=== PATIENT | male | born 1950 | race Caucasian/White ===

== ENCOUNTER → 2017-06-29 | Outpatient (CLI) | payer MEDICARE ==
[~2017-06-29] MED LIST: ALLO300 PO; ASCO500 PO; Coumadin4 MG PO; ENOX100I; MECL25 PO; METO50 PO; MULT50FEL PO; POTCHL10ER PO; ROSU5 PO; SIMV40 PO; TAMS.4ER PO; WARF1 PO; WARF5 PO
[2017-06-29 12:49] LABS: Body Fluid Crystals NEG (NEGATIVE)
[2017-06-29 13:27] LABS: BODY FLUID RBC 0.051 (0-0); RBC Count, Synovial Fluid 51000 /mm3 (0-0); WBC Count, Synovial Fluid 743 /mm3 (0-180)
[2017-06-29 13:45] LABS: Appearance, Synovial Fluid Cloudy (Clear); Color, Synovial Fluid Red (None-P Yel)
[2017-06-29 14:20] LABS: Eos, Synovial Fluid 1 % (0-2); Lymphs, Synovial Fluid 16 % (0-15); Monocytes/Macrophages, Synovia 54 % (0-65); Neutrophils, Synovial Fluid 29 % (0-24)
== END | disposition home or self-care (01) ==
LOC: LAB 11:58
PROVIDERS: Orthopaedic Surgery
DX: M25.461 Effusion, right knee (principal)
CPT/HCPCS: 87070; 87075; 87205; 89051; 89060

== ENCOUNTER 2017-09-20 13:22 | Day surgery (SDC) | payer MEDICARE ==
[~2017-09-20] VITALS: Ht 185.4 cm; Wt 87.7 kg
[~2017-09-20 13:22] MED LIST changes: -ENOX100I
[2017-09-20] MEDS ORDERED: ENOX100I (14:17)
== END 2017-09-20 16:03 | disposition home or self-care (01) ==
LOC: ORSCSDS 13:22
PROVIDERS: Internal Medicine Gastroenterology
PROC: 0W3P8ZZ Control Bleeding in Gastrointestinal Tract, Via Natural or Artificial Opening Endoscopic (ICD-10-PCS; principal; 2017-09-20 15:00)
DX: K62.5 Hemorrhage of anus and rectum (principal); K57.30 Diverticulosis of large intestine without perforation or abscess without bleeding; K62.7 Radiation proctitis; I10 Essential (primary) hypertension; Z85.46 Personal history of malignant neoplasm of prostate; Z95.0 Presence of cardiac pacemaker; Z79.899 Other long term (current) drug therapy; Z79.01 Long term (current) use of anticoagulants

== ENCOUNTER → 2018-01-02 | Outpatient (CLI) | payer MEDICARE ==
[~2018-01-02] MED LIST changes: +ENOX100I
== END | disposition home or self-care (01) ==
LOC: LAB SHORT 08:16 → PLD 08:16
DX: L57.0 Actinic keratosis (principal)
CPT/HCPCS: 88305

== ENCOUNTER → 2020-12-23 | Outpatient (CLI) | payer MEDICARE | END | disposition home or self-care (01) | LOC: LAB SHORT 15:01 → LAB 15:01 | DX: C44.311 Basal cell carcinoma of skin of nose (principal) | CPT/HCPCS: 88305 ==

== ENCOUNTER 2022-09-05 07:16 | Day surgery (SDC) | payer MEDICARE, OTHER ==
[~2022-09-05] VITALS: Ht 182.9 cm; Wt 89.8 kg
[2022-09-05] VITALS (20 sets, daily range): BP systolic 109–150; BP diastolic 66–101
[2022-09-05] MEDS ORDERED: THERA-D2000 UNIT PO (08:18)
[2022-09-05] MEDS ORDERED: FISH OIL OMEGA 3 (08:19)
[2022-09-05] MEDS ORDERED: METO50ER PO (08:20)
[2022-09-05] MEDS ORDERED: GLUCHON (08:20)
[2022-09-05] MEDS ORDERED: TAMS.4ER PO (08:21)
--- NOTE | 2022-09-05 09:30 | NUR ---
SUCCESSFUL FANI. PATIENT TOELRATED PROCEDURE WELL
--- NOTE | 2022-09-05 10:00 | NUR ---
PATIENT SITTING UP IN BED CONVERSING APPROPRIATELY. DISCHARGE INSTRUCTIONS REVIEWED WITH PATEINT. VSS ON ROOM AIR
--- NOTE | 2022-09-05 10:30 | NUR ---
BLOOD CULTURES X2 DRAWN AT THIS TIME
--- NOTE | 2022-09-05 10:38 | NUR ---
PATIENT DISCHARGED HOME AT THIS TIME. DISCHARGE PAPERWORK AND PATIENT BELONGINGS LEFT WITH PATIENT. PIV REMOVED WITHOUT DIFFICULTY, CATHETER INTACT. KARRI, FRIEND AT BEDSIDE ABLE TO TRANSPORT PATIENT HOME. VSS ON ROOM AIR
== END 2022-09-05 22:48 | disposition home or self-care (01) ==
LOC: MHTC 07:16
DX: Z09 Encounter for follow-up examination after completed treatment for conditions other than malignant neoplasm (principal); Z95.2 Presence of prosthetic heart valve; Z95.828 Presence of other vascular implants and grafts; E78.5 Hyperlipidemia, unspecified; Z79.899 Other long term (current) drug therapy; I10 Essential (primary) hypertension
CPT/HCPCS: 93312; 93325; A9270; J2704; J7030

== ENCOUNTER 2023-03-31 10:53 | Day surgery (SDC) | payer MEDICARE, OTHER ==
[~2023-03-31] VITALS: Ht 182.9 cm; Wt 194.0 kg
[2023-03-31] VITALS (30 sets, daily range): BP systolic 101–184; BP diastolic 56–110
[~2023-03-31 10:53] MED LIST changes: +FISH OIL OMEGA 3; +GLUCHON; +METO50ER PO; +THERA-D2000 UNIT PO
--- NOTE | 2023-03-31 12:52 | NUR ---
PT DENIES ANY SYMPTOMS AT THIS TIME. PT A&Ox4.
--- NOTE | 2023-03-31 13:47 | NUR ---
PROCEDURE FINISHED. PT A&Ox4.
--- NOTE | 2023-03-31 14:26 | NUR ---
PT GIVEN DC INSTRUCTIONS AND VERBALIZED UNDERSTANDING. IV OUT. PT STATES THROAT IS NO LONGER NUMB. PT DENIES ANY SYMTPOMS. PT CHANGED INTO CLOTHES. PT WALKED TO [facility] WHERE RIDE IS WAITING FOR HIM.
== END 2023-03-31 22:34 | disposition home or self-care (01) ==
LOC: MHTC 10:53
DX: I77.819 Aortic ectasia, unspecified site (principal); I51.89 Other ill-defined heart diseases; M10.9 Gout, unspecified; E78.5 Hyperlipidemia, unspecified
CPT/HCPCS: 93312; 93325; A9270; J2405; J2704; J7030

== ENCOUNTER 2024-03-19 11:05 | Day surgery (SDC) | payer MEDICARE, OTHER ==
[~2024-03-19] VITALS: Ht 182.9 cm; Wt 81.9 kg
[~2024-03-19 11:05] MED LIST changes: +Lactated Ringer's 1,000 ML IV ONE; +propofoL 50 ML IV ONE
[2024-03-19] MEDS ORDERED: B-121000 MC6 (11:33)
[2024-03-19] MEDS ORDERED: PREVAGEN 20 MG (11:35)
[2024-03-19] MEDS ORDERED: Lactated Ringer's 1,000 ML IV ONE (11:52)
[2024-03-19 13:05] VITALS: BP 127/72
== END 2024-03-19 12:55 | disposition home or self-care (01) ==
LOC: ORSCSDS 11:05
PROVIDERS: Specialist
PROC: 0DJD8ZZ Inspection of Lower Intestinal Tract, Via Natural or Artificial Opening Endoscopic (ICD-10-PCS; principal; 2024-03-19 12:30)
DX: Z12.11 Encounter for screening for malignant neoplasm of colon (principal); Z86.0100 Personal history of colon polyps, unspecified; K64.8 Other hemorrhoids; K57.30 Diverticulosis of large intestine without perforation or abscess without bleeding; K62.7 Radiation proctitis; I10 Essential (primary) hypertension; E78.5 Hyperlipidemia, unspecified; Z79.01 Long term (current) use of anticoagulants; Z79.899 Other long term (current) drug therapy
CPT/HCPCS: J2704; J7120